=== PATIENT | male | born 1960 | race Caucasian/White ===

== ENCOUNTER 2018-07-30 15:37 | Inpatient (IN) | payer BC ==
[2018-07-30] MEDS ORDERED: SODIUM CHLORIDE 0.9% 1,000 ML IV ONE (17:12)
--- NOTE | 2018-07-30 17:21 | ED ---
Extremity Problem HPI - General Source: patient Mode of arrival: ambulatory Limitations: no limitations <Marie Kevin - Last Filed: 07/30/18 19:18> <Jorge Luis Hernandez - Last Filed: 07/30/18 19:25> - General Chief complaint: Extremity Problem,Nontraumatic Stated complaint: Rash - [facility] Sent Time Seen by Provider: 07/30/18 16:11 - History of Present Illness Initial comments: 58-year-old male past medical history of hypertension and asthma who presents today for chief complaint of left knee pain and rash of the lateral lower extremities that is itchy. Patient states that he was exposed to a standing sweet pea tree which results in a rash similar to that of poison sumac about 2 weeks ago, threes day following exposure pt developed rash. The rash spread from left knee, down left leg onto the right leg and know on forearms b/l. Patient was seen by his primary care provider who started him on a steroid taper Wednesday. Signs and symptoms of secondary infection were discussed at that time, patient noted increasing redness surrounding the areas of the rash. Yesterday he noticed left knee swelling, pain with ambulation and range of motion. The pain persisted into today so he was evaluated at [facility] who sent pt to the emergency department for evaluation of septic arthritis. Upon arrival pt has low grade fever of 99.2F, HR 94bpm. Pt appears well nontoxic. Patient denies any recent fever, chills, shortness of breath, chest pain, back pain, abdominal pain, nausea or vomiting, numbness or tingling, dysuria or hematuria, constipation or diarrhea, headaches or visual changes, or any other complaints. (Marie Kevin) - Related Data Allergies Allergy/AdvReac Type Severity Reaction Status Date / Time No Known Allergies Allergy Verified 07/30/18 15:44 Review of Systems ROS Other: All systems not noted in ROS Statement are negative. Constitutional: Denies: fever, chills, night sweats ENT: Denies: ear pain, throat pain Respiratory: Denies: cough, dyspnea, wheezes, hemoptysis, stridor Cardiovascular: Denies: chest pain, palpitations Gastrointestinal: Denies: abdominal pain, nausea, vomiting, diarrhea, constipation Genitourinary: Denies: urgency, dysuria, frequency Musculoskeletal: Reports: joint swelling, arthralgia. Denies: as per HPI, back pain Skin: Reports: as per HPI, rash, change in color, pruritus Neurological: Denies: headache, weakness, numbness, paresthesias, confusion <HerberthMarie - Last Filed: 07/30/18 19:18> ROS Other: All systems not noted in ROS Statement are negative. <Jorge Luis Hernandez - Last Filed: 07/30/18 19:25> ROS Statement: Those systems with pertinent positive or pertinent negative responses have been documented in the HPI. Past Medical History Past Medical History: Asthma, Hyperlipidemia, Hypertension History of Any Multi-Drug Resistant Organisms: None Reported Past Surgical History: Hernia Repair Additional Past Surgical History / Comment(s): vasectomy Past Psychological History: No Psychological Hx Reported Smoking Status: Former smoker Past Alcohol Use History: None Reported Past Drug Use History: None Reported <Irene Kevinkwasi Patino - Last Filed: 07/30/18 19:18> General Exam Limitations: no limitations <aMrie Kevin - Last Filed: 07/30/18 19:18> <Jorge Luis Hernandez - Last Filed: 07/30/18 19:25> - General Exam Comments Initial Comments: General: The patient is awake and alert, in no distress, and does not appear acutely ill. Eye: Pupils are equal, round and reactive to light, extra-ocular movements are intact. No nystagmus. There is normal conjunctiva bilaterally. No signs of icterus. Ears, nose, mouth and throat: There are moist mucous membranes and no oral lesions. Neck: The neck is supple, there is no tenderness or JVD. Cardiovascular: There is a regular rate and rhythm. No murmur, rub or gallop is appreciated. Respiratory: Lungs are clear to auscultation, respirations are non-labored, breath sounds are equal. No wheezes, stridor, rales, or rhonchi. Musculoskeletal: Upon inspection of the lower extremities there is dermatitis to the left knee medial aspect and medial aspect of right knee in contact pattern dermatitis extends down left lower leg and up towards inner upper thighs all areas of involvement have surrounding erythema. There is same dermatitis on the forearms b/l. Warmth to palpation of affected area. Pt is able to fully range at the knees b/l both active and passively with discomfort with all motions, pt admits to pain with weight bearing in the knee joint, no tenderness. Strength 5/5 of the LE equally b/l. Sensation intact. DP pulses equal bilaterally 2+. (-) Homans, lower extremity edema present equally b/l. Neurological: A&O x 3. CN II-XII intact, There are no obvious motor or sensory deficits. Coordination appears grossly intact. Speech is normal. Skin: Skin is warm and dry and no rashes or lesions are noted. Psychiatric: Cooperative, appropriate mood & affect, normal judgment. (Marie Kevin) Course <Marie Kevin - Last Filed: 07/30/18 19:18> <Jorge Luis Hernandez - Last Filed: 07/30/18 19:25> Vital Signs 07/30/18 07/30/18 15:41 18:18 Temperature 99.4 F 100.6 F H Pulse Rate 94 71 Respiratory 20 18 Rate Blood Pressure 141/59 121/82 O2 Sat by Pulse 99 97 Oximetry - Reevaluation(s) Reevaluation #1: 07/30/18 19:24 Patient reevaluated by myself, Dr. Hernandez. Patient does have diffuse rash with some parts of the left lower leg suspicious for cellulitis. Left knee does feel slightly swollen and warm and tender. Arthrocentesis was attempted without been able to withdrawal any fluid. Care was taken to avoid any area of rash or cellulitis. No complications. Case was discussed in detail with Dr. Diaz who does recommend medical admission and he will consult. Case was also discussed with Dr. Phillips, who will admit. (Jorge Luis Hernandez) Procedures - Joint Aspiration/Injection Consent Obtained: verbal consent Time Out Performed: Yes Indications: R/O septic arthritis Side of Body: left Joint Aspirated: knee Skin Prep: Povidone-Iodine1% Local Anesthesia Used: Lidocaine 1% Needle Size Used: 22G Syringe Size Used: 10cc Patient Tolerated Procedure: well Complications: other (Unable to obtain fluid) <Jorge Luis Hernandez - Last Filed: 07/30/18 19:25> Medical Decision Making - Lab Data Result diagrams: 07/30/18 17:40 07/30/18 17:40 <Marie Kevin - Last Filed: 07/30/18 19:18> - Lab Data Result diagrams: 07/30/18 17:40 07/30/18 17:40 <Hernandez,Jorge Luis - Last Filed: 07/30/18 19:25> - Medical Decision Making 58male with atraumatic left knee pain, erythema and swelling concerning for a septic joint vs cellulitis. Labs as noted above. Pt given 0.9% NS 1000mL. XR left knee obtained reveal no acute fracture dislocation. There is evidence of mild bicarb mental arthropathy and overlying soft tissue swelling subcutaneous edema. Pt developed low grade fever of 100.9F, given 650mg tylenol. Pt evaluated by Dr. Hernandez [id number]. He performed a knee aspiration to r/o septic arthritis, no fluid was obtained from the aspiration. Pt given norco 5mg for post procedure pain. Dr. Diaz was consulted from orthopedic surgery, he stated given XR findings, HX and PE he has low suspicion for septic joint. Pt met sepsis criteria, after attempt of aspiration broad spectrum antibiotics initiated with coverage for possible septic arthritis. Dr. Diaz recommended medicine admit with orthopedic consultation. Dr. Raya consulted who accepted admission after speaking with Dr. Hernandez. Pt was transferred to floor in stable condition. (Marie Kevin) - Lab Data Lab Results 07/30/18 07/30/18 07/30/18 Range/Units 17:40 17:40 17:40 WBC 14.2 H (3.8-10.6) k/uL RBC 5.32 (4.30-5.90) m/uL Hgb 16.1 (13.0-17.5) gm/dL Hct 48.7 (39.0-53.0) % MCV 91.5 (80.0-100.0) fL MCH 30.3 (25.0-35.0) pg MCHC 33.1 (31.0-37.0) g/dL RDW 14.6 (11.5-15.5) % Plt Count 249 (150-450) k/uL Neutrophils % 80 % Lymphocytes % 7 % Monocytes % 5 % Eosinophils % 6 % Basophils % 1 % Neutrophils # 11.4 H (1.3-7.7) k/uL Lymphocytes # 0.9 L (1.0-4.8) k/uL Monocytes # 0.8 (0-1.0) k/uL Eosinophils # 0.9 H (0-0.7) k/uL Basophils # 0.1 (0-0.2) k/uL Sodium 140 (137-145) mmol/L Potassium 3.7 (3.5-5.1) mmol/L Chloride 99 (98-107) mmol/L Carbon Dioxide 29 (22-30) mmol/L Anion Gap 12 mmol/L BUN 20 (9-20) mg/dL Creatinine 1.00 (0.66-1.25) mg/dL Est GFR (CKD-EPI)AfAm >90 (>60 ml/min/1.73 sqM) Est GFR (CKD-EPI)NonAf 82 (>60 ml/min/1.73 sqM) Glucose 109 H (74-99) mg/dL Plasma Lactic Acid Néstor 1.3 (0.7-2.0) mmol/L Calcium 9.7 (8.4-10.2) mg/dL Total Bilirubin 1.0 (0.2-1.3) mg/dL AST 21 (17-59) U/L ALT 35 (21-72) U/L Alkaline Phosphatase 75 (38-126) U/L Total Protein 7.7 (6.3-8.2) g/dL Albumin 4.3 (3.5-5.0) g/dL Disposition Time of Disposition: 19:16 Decision to Admit Reason: Admit from [facility] Decision Date: 07/30/18 Decision Time: 19:16 <Marie Kevin - Last Filed: 07/30/18 19:18> <Jorge Luis Hernandez - Last Filed: 07/30/18 19:25> Clinical Impression: Cellulitis of left lower extremity, Adverse effect of podophyllum resin Disposition: ADMITTED IP TO THIS [facility] Condition: Stable Referrals: Nonstaff,Physician [Primary Care Provider] - 1-2 days
[2018-07-30 17:53] LABS: Basophils # (A) 0.1 k/uL (0-0.2); Basophils % (A) 1 %; Eosinophils # (A) 0.9 k/uL (0-0.7); Eosinophils % (A) 6 %; HCT 48.7 % (39.0-53.0); HGB 16.1 gm/dL (13.0-17.5); Lymphocytes # (A) 0.9 k/uL (1.0-4.8); Lymphocytes % (A) 7 %; MCH 30.3 pg (25.0-35.0); MCHC 33.1 g/dL (31.0-37.0); MCV 91.5 fL (80.0-100.0); Mean Platelet Volume 7.1; Monocytes # (A) 0.8 k/uL (0-1.0); Monocytes % (A) 5 %; Neutrophils # (A) 11.4 k/uL (1.3-7.7); Neutrophils % (A) 80 %; Platelet Count 249 k/uL (150-450); RBC 5.32 m/uL (4.30-5.90); RDW 14.6 % (11.5-15.5); WBC 14.2 k/uL (3.8-10.6)
--- NOTE | 2018-07-30 18:10 | XR ---
EXAMINATION TYPE: XR knee complete LT DATE OF EXAM: 07/30/2018 CLINICAL HISTORY: Left knee pain and swelling for 2 days with no known injury. TECHNIQUE: Three views of the left knee are obtained. COMPARISON: None. FINDINGS: There is no acute fracture/dislocation evident in left knee. The tri-compartment joint sp aces demonstrate small patellofemoral osteophytes and very small medial compartment osteophytes The o verlying soft tissue display subcutaneous edema. IMPRESSION: There is no acute fracture or dislocation in the left knee. Diffuse soft tissue swelling . Mild bicompartmental arthropathy.
[2018-07-30 18:18] LABS: ALT 35 U/L (21-72); AST 21 U/L (17-59); Albumin 4.3 g/dL (3.5-5.0); Alkaline Phosphatase 75 U/L (38-126); Anion Gap 12 mmol/L; Blood Urea Nitrogen 20 mg/dL (9-20); Calcium 9.7 mg/dL (8.4-10.2); Carbon Dioxide 29 mmol/L (22-30); Chloride 99 mmol/L (98-107); Glucose 109 mg/dL (74-99); Potassium 3.7 mmol/L (3.5-5.1); Sodium 140 mmol/L (137-145); Total Protein 7.7 g/dL (6.3-8.2)
[2018-07-30] MEDS ORDERED: ACETAMINOPHEN TAB 325 MG TAB PO STA (18:32)
[2018-07-30] MEDS ORDERED: HYDROcodone/APAP 5-325MG 1 EACH TAB PO STA (19:03)
[2018-07-30] MEDS ORDERED: VANCOMYCIN IV PER PHARMACY 1 EACH MISC MISCELLANE PRN (19:12)
[2018-07-30] MEDS ORDERED: ONDANSETRON 4 MG/2 ML VIAL IVP PRN (19:13)
[2018-07-30] MEDS ORDERED: IBUPROFEN 400 MG TAB PO PRN (19:13)
[2018-07-30] MEDS ORDERED: ACETAMINOPHEN TAB 325 MG TAB PO PRN (19:13)
[2018-07-30] MEDS ORDERED: NALOXONE 0.4 MG/ML 1 ML VIAL IV PRN (19:13)
[2018-07-30 19:59] LABS: Appearance,Urine Clear (Clear); Bilirubin,Urine Negative (Negative); Blood,Urine Negative (Negative); Color,Urine Yellow; Glucose,Urine (UA) Negative (Negative); Ketones,Urine Negative (Negative); Leukocyte Esterase,Urine Negative (Negative); Nitrite,Urine Negative (Negative); Protein,Urine Negative (Negative); Specific Gravity,Urine 1.012 (1.001-1.035); Urobilinogen,Urine <2.0 mg/dL (<2.0)
[2018-07-30] MEDS ORDERED: VANCOMYCIN 2,250 MG in SODIUM CHLORIDE 0.9% 500 ML 500 ML IVPB ONE (20:00)
[2018-07-30] MEDS: cefTRIAXone 2,000 MG in SODIUM CHLORIDE 0.9% 100 ML IVPB SCH (20:05)
[2018-07-30] MEDS: SODIUM CHLORIDE 0.9% 1,000 ML IV SCH (20:06)
[2018-07-30] MEDS ORDERED: diphenhydrAMINE 25 MG CAP PO PRN (20:57)
--- NOTE | 2018-07-30 21:01 | P.HPIM ---
History of Present Illness H&P Date: 07/30/18 Chief Complaint: Diffuse rash, left knee pain, fever The patient is a 58-year-old male with past medical history of hypertension and asthma who presents today for chief complaint of left knee pain and rash of the lateral lower extremities. Patient states that he was exposed to a standing sweet pea tree which results in a rash similar to that of poison sumac about 2 weeks ago, threes day following exposure pt developed rash. The rash spread from left knee, down left leg onto the right leg and know on forearms b/l. Patient was seen by his primary care provider who started him on a steroid taper Wednesday. Signs and symptoms of secondary infection were discussed at that time, patient noted increasing redness surrounding the areas of the rash. Reports redness Yesterday he noticed left knee swelling, pain on the inner medial side by his patella with limited range of motion and increasing difficulty ambulating. Patient noticed left knee was warm to touch with increasing erythema in the left popliteal area. The pain persisted into today so he was evaluated at [email or web address] who sent pt to the emergency department for evaluation of septic arthritis. Upon arrival pt has low grade fever of 99.2F, HR 94bpm. Pt appears well nontoxic. Patient denies any recent fever, chills, shortness of breath, chest pain, back pain, abdominal pain, nausea or vomiting, numbness or tingling, dysuria or hematuria, constipation or diarrhea, headaches or visual changes, or any other complaints. X-ray of the left knee shows no acute fracture diffuse soft tissue swelling, with mild bicompartmental arthropathy Review of Systems Pertinent positives per HPI, all other systems are negative Past Medical History Past Medical History: Asthma, Hyperlipidemia, Hypertension History of Any Multi-Drug Resistant Organisms: None Reported Past Surgical History: Hernia Repair Additional Past Surgical History / Comment(s): vasectomy Past Psychological History: No Psychological Hx Reported Smoking Status: Former smoker Past Alcohol Use History: None Reported Past Drug Use History: None Reported Medications and Allergies Allergies Allergy/AdvReac Type Severity Reaction Status Date / Time No Known Allergies Allergy Verified 07/30/18 15:44 Physical Exam Vitals: Vital Signs Temp Pulse Resp BP Pulse Ox 07/30/18 19:57 98.4 F 64 18 113/64 95 07/30/18 19:32 98.1 F 10/06/18 18:18 100.6 F H 71 18 121/82 97 07/30/18 15:41 99.4 F 94 20 141/59 99 Intake and Output 07/30/18 07/30/18 07/30/18 06:59 14:59 22:59 Other: Weight 110.223 kg Constitutional: No acute distress, conversant, pleasant Eyes: Anicteric sclerae, moist conjunctiva, no lid-lag, PERRLA ENMT: NC/AT,Oropharynx clear, no erythema, exudates Neck:Supple, FROM, no masses, or JVD, No carotid bruits; No thyromegaly Lungs: Clear to auscultation, Clear to percussion, Normal respiratory effort, no accessory muscle use Cardiovascular: Heart regular in rate and rhythm, No murmurs, gallops, or rubs no peripheral edema Abdominal: Soft Nontender, nom distended, no guarding, no rebound or rigidity, Normoactive bowel sounds No hepatomegaly, No splenomegaly, No palpable mass No abdominal wall hernia noted Skin: Warm to touch, blisters in advanced stage of healing, contact dermatitis pattern extending down the left lower leg up towards inner thigh areas with other areas of surrounding erythema, also similarly located in the bilateral upper extremities Extremities: Noted left knee effusion, tender to palpation on the left medial patellar area, with erythematous warm to touch rash in the popliteal area, limited range of motion in the left knee due to pain/ patient also complained and off difficulty bearing weight and pain with ambulation, capillary refill brisk bilaterally Psychiatric: Alert and oriented to person, place and time, Appropriate affect Intact judgement Neuro: Muscles Strength 5/5 in all 4 extremities, Sensation to light touch grossly present throughout, Cranial nerves II-XII grossly intact. No focal sensory deficits Results CBC & Chem 7: 07/30/18 17:40 07/30/18 17:40 Labs: Abnormal Lab Results - Last 24 Hours (Table) 07/30/18 07/30/18 Range/Units 17:40 17:40 WBC 14.2 H (3.8-10.6) k/uL Neutrophils # 11.4 H (1.3-7.7) k/uL Lymphocytes # 0.9 L (1.0-4.8) k/uL Eosinophils # 0.9 H (0-0.7) k/uL Glucose 109 H (74-99) mg/dL Assessment and Plan (1) Sepsis Current Visit: Yes Status: Acute Code(s): A41.9 - SEPSIS, UNSPECIFIED ORGANISM SNOMED Code(s): 36493480 (2) Effusion, left knee Current Visit: Yes Status: Acute Code(s): M25.462 - EFFUSION, LEFT KNEE SNOMED Code(s): 178477250 (3) Cellulitis of left lower extremity Current Visit: Yes Status: Acute Code(s): L03.116 - CELLULITIS OF LEFT LOWER LIMB SNOMED Code(s): 164857636 (4) Contact dermatitis Current Visit: Yes Status: Acute Code(s): L25.9 - UNSPECIFIED CONTACT DERMATITIS, UNSPECIFIED CAUSE SNOMED Code(s): 36500999 Plan: The patient is admitted to the medical floor anticipated greater than 2 midnight stay with sepsis secondary to lower extremity cellulitis from secondary infection due to prior contact dermatitis, noted fever, with leukocytosis, blood cultures pending, will obtain urine culture. Concern for left knee septic joint, ER physician unable to aspirate any synovial fluid for analysis. Orthopedic consult, started on empiric IV antibiotics with Rocephin and vancomycin, continue with supportive management Benadryl calamine lotion when necessary contact dermatitis. Patient initiated on Lovenox for DVT prophylaxis. We'll continue to follow patient's clinical course CODE STATUS Full code Discussed plan of care with patient/ Next of kin Jonna DVT prophylaxis : SCDs and Lovenox Anticipated discharge 2-3 days
[2018-07-31] MEDS: HYDROcodone/APAP 5-325MG 1 EACH TAB PO PRN ×3 (05:56→21:05)
[2018-07-31] MEDS: VANCOMYCIN 1,750 MG in SODIUM CHLORIDE 0.9% 500 ML 500 ML IVPB SCH ×2 (10:30→21:06)
[2018-07-31] MEDS: ENOXAPARIN 40 MG/0.4 ML SYRINGE SQ SCH (10:33)
--- NOTE | 2018-07-31 10:58 | P.CNOR ---
History of Present Illness - [facility] Consult date: 07/31/18 Requesting physician: Marie Kevin Consult reason: other (Left knee pain and rash with swelling; rule out septic joint) History of present illness: Patient is a very pleasant 58-year-old male who is seen examined at bedside with Dr. Diaz. Patient states approximately 2 weeks ago he was standing next to a sweet pea tree which is known to cause a rash similar to that of poison sumac. Since that time, he has began to experience significant rash. nitially the rash was at the left knee. The rash extended down the left lower extremity and also towards the left medial ankle. And then spread over to the right medial knee and right medial ankle. It has also extended to the upper extremities. He saw primary care provider this past Wednesday for further treatment evaluation. He was started on a steroid. His symptoms persisted and yesterday, 07/30/2018, he noticed increased left knee pain and swelling with difficulty with ambulation. He presented to [facility] for further treatment and evaluation. He was then sent to the emergency department for further treatment evaluation. He was admitted to medicine. He has been started on vancomycin and Rocephin. Patient has also been discussed with medicine today. Patient was found to have elevated WBC of 14.2 and elevated neutrophils 11.4 during his evaluation the emergency department. Patient has a past medical history which includes hypertension and asthma. Past Medical History Past Medical History: Asthma, Hyperlipidemia, Hypertension Additional Past Medical History / Comment(s): CPAP at night History of Any Multi-Drug Resistant Organisms: None Reported Past Surgical History: Hernia Repair Additional Past Surgical History / Comment(s): vasectomy, tiera facial spasm repaired in 1999 Past Anesthesia/Blood Transfusion Reactions: No Reported Reaction Past Psychological History: No Psychological Hx Reported Smoking Status: Former smoker Past Alcohol Use History: None Reported Past Drug Use History: None Reported - Past Family History Mother Family Medical History: Hypertension Additional Family Medical History / Comment(s): Mom is still alive Father Family Medical History: Diabetes Mellitus, Hypertension, Myocardial Infarction ( [place]) Additional Family Medical History / Comment(s): "Had 7 stents in heart" from heart attack he thinks Medications and Allergies Home Medications Medication Instructions Recorded Confirmed Type Pantoprazole [Protonix] BID 07/30/18 History Simvastatin [Zocor] HS 07/30/18 History Allergies Allergy/AdvReac Type Severity Reaction Status Date / Time No Known Allergies Allergy Verified 07/30/18 22:00 Physical Examination Physical Exam: Patient is awake, alert, and oriented 3 Vital signs stable Good chest excursion with deep inspiration and expiration Abdomen soft nontender No signs or symptoms of DVT; no calf pain Evidence of contact dermatitis rash that is red and warm with some crusting over the left medial knee, left proximal tibia, left medial ankle, right medial knee, right medial ankle, and mildly over the bilateral upper extremities Evidence of generalized prepatellar swelling over the left knee Palpation of the left knee is warm and exacerbates pain No evidence of joint effusion Active full range of motion of bilateral lower extremities Some increased pain with range of motion of the left knee No active drainage or open wound at the left knee Results Pertinent studies: X-rays the left knee: Evidence of soft tissue swelling; no evidence of fracture or dislocation; mild compartmental arthropathy - Labs Labs: Abnormal Lab Results - Last 24 Hours (Table) 07/30/18 07/30/18 Range/Units 17:40 17:40 WBC 14.2 H (3.8-10.6) k/uL Neutrophils # 11.4 H (1.3-7.7) k/uL Lymphocytes # 0.9 L (1.0-4.8) k/uL Eosinophils # 0.9 H (0-0.7) k/uL Glucose 109 H (74-99) mg/dL H & H 07/30/18 Range/Units 17:40 Hgb 16.1 (13.0-17.5) gm/dL Hct 48.7 (39.0-53.0) % Result Diagrams: 07/30/18 17:40 07/30/18 17:40 Assessment and Plan Assessment: Assessment: Left prepatellar swelling not appearing to be within the joint Pain with movement palpation of the left knee Evidence of rash over the left medial knees bilaterally, left ankles bilaterally , left proximal tibia, and mildly over the bilateral upper extremities Leukocytosis History of hypertension History of asthma (1) Pain and swelling of left knee Current Visit: Yes Status: Acute Code(s): M25.562 - PAIN IN LEFT KNEE; M25.462 - EFFUSION, LEFT KNEE SNOMED Code(s): 05183864 (2) Leukocytosis Current Visit: Yes Status: Acute Code(s): D72.829 - ELEVATED WHITE BLOOD CELL COUNT, UNSPECIFIED SNOMED Code(s): 595754309 (3) Hypertension Current Visit: Yes Status: Acute Code(s): I10 - ESSENTIAL (PRIMARY) HYPERTENSION SNOMED Code(s): 94718109 (4) History of asthma Current Visit: Yes Status: Acute Code(s): Z87.09 - PERSONAL HISTORY OF OTHER DISEASES OF THE RESPIRATORY SYSTEM SNOMED Code(s): 429007287 (5) Contact dermatitis Current Visit: Yes Status: Acute Code(s): L25.9 - UNSPECIFIED CONTACT DERMATITIS, UNSPECIFIED CAUSE SNOMED Code(s): 67308084 Plan: Plan: 1. Patient has been seen and examined at the bedside by myself and Dr. Solomon Diaz. After physical examination, we are not currently planning for irrigation and debridement or drainage of the left knee. Patient does have evidence of swelling over the prepatellar area that doesn't appear to be within the left knee joint. We will continue conservative treatment with antibiotics as prescribed by medicine. Patient is currently on vancomycin and Rocephin. We will continue to follow patient closely. If he is able to improve on IV antibiotics, he may be clear for discharge as early as tomorrow, 08/01/2018. Patient has been discussed in detail with medicine. Continue pain control with medications as prescribed as needed for relief of his symptoms. 2. Patient will continue to be seen by medicine in regards his medical diagnoses Time with Patient: Less than 30
[2018-07-31] MEDS: cefTRIAXone 2,000 MG in SODIUM CHLORIDE 0.9% 100 ML IVPB SCH (13:50)
[2018-07-31] MEDS ORDERED: ALBUTEROL NEBULIZED 2.5 MG/3 ML INHALATION PRN (15:42)
--- NOTE | 2018-07-31 15:45 | P.PN ---
Subjective Progress Note Date: 07/31/18 Patient is a 58-year-old male with a PMH of hypertension and asthma who presented to the ED with a complaint of left knee and leg painful rash and swelling. The patient notes that 2 weeks ago he cut down a sweet pea [place] came in contact with his legs. He thoroughly washed the area after the contacts however, one week later he started noticing a rash over the left leg. He went to see his primary care provider who placed him on a steroid taper at that time. Yesterday he noted that his left knee had started to hurt and the rash had not resolved so he visited a local urgent care center from where he was referred to the ED for concerns of septic arthritis. The patient was noted to have a low-grade fever of 99.2 with a normal heart rate and a WBC count of 14.2. The arthrocentesis was attempted but was unsuccessful and the patient was admitted to the medicine service for further management. He was started on empiric IV antibiotics and orthopedic surgery was consulted. Orthopedics recommended a conservative approach since the patient did not have evidence of effusion within the knee joint with swelling only over the prepatellar area. The recommended to continue IV antibiotics for now. Patient was seen and examined at the bedside. He notes that his rash has improved since admission and he otherwise denied any episodes of fever, chills, chest pain, shortness of breath, or palpitations. He further denies any episodes of diarrhea, nausea, vomiting, or constipation. Objective - Vital Signs Vital signs: Vital Signs Temp 99.7 F H 07/31/18 14:20 Pulse 72 07/31/18 14:20 Resp 19 07/31/18 14:20 BP 124/79 07/31/18 14:20 Pulse Ox 94 L 07/31/18 14:20 Intake & Output 07/30/18 07/31/18 07/31/18 18:59 06:59 18:59 Intake Total 1240 200 Balance 1240 200 Weight 110.223 kg Intake: Intake, IV Titration 740 Amount Sodium Chloride 0.9% 1, 240 000 ml @ 20 mls/hr IV . Q24H [facility] Rx#:[id number] Vancomycin 2,250 mg In 500 Sodium Chloride 0.9% 500 ml @ 167 mls/hr IVPB ONCE ONE Rx#:[id number] Oral 500 200 Other: Voiding Method Toilet # Voids 1 - Exam General: Non-toxic, in no acute distress HEENT: NC/AT, anicteric sclerae, moist conjunctiva, no lid-lag, PERRLA, oropharynx clear, no erythema, exudates Cardiovascular: S1/S2 wnl, no murmurs, rubs, or gallops Lungs: Clear to auscultation, normal respiratory effort, no accessory muscle use Abdominal: Soft, nontender, non-distended, no guarding, rebound, or rigidity, normoactive bowel sounds Skin: Rash noted over the medial aspect of bilateral knees with warmth and erythema and some scaling and crusting Extremities: Left knee mild tenderness Psychiatric: Alert and oriented to person, place and time, appropriate affect, Intact judgment Neuro: CN II-XII grossly intact, no focal motor deficits - Labs CBC & Chem 7: 07/30/18 17:40 07/30/18 17:40 Labs: Abnormal Lab Results - Last 24 Hours (Table) 07/30/18 07/30/18 Range/Units 17:40 17:40 WBC 14.2 H (3.8-10.6) k/uL Neutrophils # 11.4 H (1.3-7.7) k/uL Lymphocytes # 0.9 L (1.0-4.8) k/uL Eosinophils # 0.9 H (0-0.7) k/uL Glucose 109 H (74-99) mg/dL Assessment and Plan Plan: Contact dermatitis with superimposed cellulitis -Orthopedic surgery recommendations appreciated -Continue with empiric IV antibiotics ceftriaxone and vancomycin for another 24 hours -Continue with emollients Hypertension -Resume home meds: Lisinopril 20, hydrochlorothiazide 25 Hyperlipidemia -Continue with Zocor 20 Asthma -Continue with Advair twice a day and albuterol when necessary DVT//GI prophylaxis - Lovenox - No indication for GI prophylaxis Discussed with: Patient Anticipated discharge date: 08/01/[address]: Home A total of 40 minutes was spent on the care of this complex patient more than 50 % of the time was spent in counseling and care coordination.
[2018-07-31] MEDS ORDERED: VANCOMYCIN IV PER PHARMACY 1 EACH MISC MISCELLANE PRN (16:55)
[2018-07-31] MEDS: FLUTICASONE 50MCG/SPRAY NASAL 16GM EA NOSTRIL SCH (18:15)
[2018-07-31] MEDS: PANTOPRAZOLE 40 MG TABLET PO SCH (18:15)
[2018-07-31 19:18] VITALS: RESP 16
[2018-07-31] MEDS: CALAMINE/ZINC OXIDE LOTION 177 ML BTL TOPICAL PRN (19:20)
[2018-07-31] MEDS: SYMBICORT 160-4.5 MCG INHALER INHALATION SCH (19:22)
[2018-07-31] MEDS ORDERED: ATORVASTATIN 10 MG TAB PO SCH (21:00)
[2018-07-31] MEDS: SODIUM CHLORIDE 0.9% 1,000 ML IV SCH (21:10)
[2018-08-01] MEDS: CALAMINE/ZINC OXIDE LOTION 177 ML BTL TOPICAL PRN (05:35)
[2018-08-01 07:12] VITALS: BP 134/82; PULSE 74
[2018-08-01] MEDS: VANCOMYCIN 1,750 MG in SODIUM CHLORIDE 0.9% 500 ML 500 ML IVPB SCH (07:46)
[2018-08-01] MEDS: PANTOPRAZOLE 40 MG TABLET PO SCH (07:46)
[2018-08-01] MEDS: FLUTICASONE 50MCG/SPRAY NASAL 16GM EA NOSTRIL SCH (07:46)
[2018-08-01] MEDS: ENOXAPARIN 40 MG/0.4 ML SYRINGE SQ SCH (08:21)
[2018-08-01] MEDS: SYMBICORT 160-4.5 MCG INHALER INHALATION SCH (08:49)
[2018-08-01 08:57] LABS: MCH 30.6 pg (25.0-35.0); MCHC 34.1 g/dL (31.0-37.0); MCV 89.7 fL (80.0-100.0); Platelet Count 227 k/uL (150-450); RBC 4.57 m/uL (4.30-5.90); RDW 14.9 % (11.5-15.5); WBC 11.3 k/uL (3.8-10.6)
[2018-08-01] MEDS ORDERED: LISINOPRIL-HCTZ 20-25 MG 1 EACH TAB PO SCH (09:00)
[2018-08-01 09:09] LABS: Anion Gap 8 mmol/L; Blood Urea Nitrogen 16 mg/dL (9-20); Calcium 8.4 mg/dL (8.4-10.2); Carbon Dioxide 27 mmol/L (22-30); Chloride 105 mmol/L (98-107); Glucose 85 mg/dL (74-99); Sodium 140 mmol/L (137-145)
[2018-08-01 10:20] VITALS: TEMP 98.1
--- NOTE | 2018-08-01 11:28 | P.DS ---
Providers Date of admission: 07/30/18 19:25 Expected date of discharge: 08/01/18 Attending physician: Bette Raya MD Consults: 07/30/18 19:13 Consult Physician Stat Consulting Provider: Godfrey Feng Consult Reason/Comments: r/o septic joint Do you want consulting provider notified?: Already Contacted Primary care physician: Physician Nonstaff Hospital Course: Patient is a 58-year-old male with a PMH of hypertension and asthma who presented to the ED with a complaint of left knee and leg painful rash and swelling. The patient notes that 2 weeks ago he cut down a sweet pea tree on his property, the bark of which came in contact with his legs. He thoroughly washed the area after the contacts however, one week later he started noticing a rash over the affected areas. He went to see his primary care provider who placed him on a steroid taper at that time. Day prior to presentation he noted that his left knee had started to hurt and the rash had not resolved so he visited a local urgent care center from where he was referred to the ED for concerns of septic arthritis. The patient was noted to have a low-grade fever of 99.2 with a normal heart rate and a WBC count of 14.2. The arthrocentesis was attempted but was unsuccessful and the patient was admitted to the medicine service for further management. He was started on empiric IV antibiotics and orthopedic surgery was consulted. Orthopedics recommended a conservative approach since the patient did not have evidence of effusion within the knee joint with swelling only over the prepatellar area. The patient's symptoms gradually improved w/ IV abxs. He is presently stable and ready for discharge to home. Physical Examination General: Non-toxic, in no acute distress HEENT: NC/AT, anicteric sclerae, moist conjunctiva, no lid-lag, PERRLA, oropharynx clear, no erythema, exudates Cardiovascular: S1/S2 wnl, no murmurs, rubs, or gallops Lungs: Clear to auscultation, normal respiratory effort, no accessory muscle use Abdominal: Soft, nontender, non-distended, no guarding, rebound, or rigidity, normoactive bowel sounds Skin: Rash noted over the medial aspect of bilateral knees with warmth and erythema and some scaling and crusting, significantly improved, w/ erythema receding from pen markings yesterday Extremities: Left knee mild tenderness Psychiatric: Alert and oriented to person, place and time, appropriate affect, Intact judgment Neuro: CN II-XII grossly intact, no focal motor deficits Discharge diagnosis: Bilateral lower extremity contact dermatitis and superimposed cellulitis, leukocytosis, hypertension, hyperlipidemia, asthma A total of 60 minutes of time were spent preparing this complex discharge summary. Patient Condition at Discharge: Stable Plan - Discharge Summary Discharge Rx Participant: No New Discharge Prescriptions: New Clindamycin [Cleocin] 450 mg PO Q6H #20 capsule Continue Simvastatin [Zocor] 20 mg PO HS Pantoprazole [Protonix] 40 mg PO BID Fluticasone/Salmeterol [Advair 500-50 Diskus] 1 puff INHALATION RT-BID Fluticasone Nasal Weston [Flonase Nasal Weston] 1 spray EA NOSTRIL DAILY Albuterol Inhaler [Ventolin Hfa Inhaler] 2 puff INHALATION RT-Q6H PRN PRN Reason: Shortness Of Breath Lisinopril-Hctz 20-25 mg [Zestoretic 20-25] 1 tab PO DAILY Discharge Medication List Pantoprazole [Protonix] 40 mg PO BID 07/30/18 [History] Simvastatin [Zocor] 20 mg PO HS 07/30/18 [History] Albuterol Inhaler [Ventolin Hfa Inhaler] 2 puff INHALATION RT-Q6H PRN 07/31/18 [ History] Fluticasone Nasal Weston [Flonase Nasal Weston] 1 spray EA NOSTRIL DAILY 07/31/18 [History] Fluticasone/Salmeterol [Advair 500-50 Diskus] 1 puff INHALATION RT-BID 07/31/18 [History] Lisinopril-Hctz 20-25 mg [Zestoretic 20-25] 1 tab PO DAILY 07/31/18 [History] Clindamycin [Cleocin] 450 mg PO Q6H #20 capsule 08/01/18 [Rx] Follow up Appointment(s)/Referral(s): Nonstaff,Physician [Primary Care Provider] - 1-2 days Discharge Disposition: HOME SELF-CARE
[2018-08-01] MEDS ORDERED: cefTRIAXone 2,000 MG in SODIUM CHLORIDE 0.9% 100 ML IVPB SCH (12:00)
[2018-08-01] MEDS ORDERED: VANCOMYCIN 2,000 MG in SODIUM CHLORIDE 0.9% 500 ML 500 ML IVPB SCH (20:00)
--- NOTE | 2018-08-02 08:13 | CDI ---
Last Revision, September 2017 Documentation Clarification Form Date: 08/02/2018 7:44:26 AM From: Lindsey Daviss Phone: If you have a question about this query, please contact [employer] at [phone] between 8am and 5pm. Admit Date: 07/30/2018 7:25:00 PM Patient Name: Dallas May Visit Number: [id number] Discharge Date: 08/01/18 ATTENTION: The Clinical Documentation Specialists (CDI) and [facility] Coding Staff appreciate your assistance in clarifying documentation. Please respond to the clarification below the line at the bottom and electronically sign. The CDI & [facility] Coding staff will review the response and follow-up if needed. Please note: Queries are made part of the Legal Health Record. If you have any questions, please contact the author of this message via ITS. Bette Canales MD H & P documents sepsis. But Sepsis diagnosis not carried through chart. Please clarify if patient had sepsis or was it ruled out. History/Risk Factors: contact dermatitis from contact with bark of pea tree. Clinical Indicators: rash, effusion knee, cellulitis let leg WBC/Left Shift 14.2 Lactic acid: 1.3 Vitals signs on admission: 99.4-100.6 F, 94-71, 20-18, 141/59 121/82, 99 RA 97 RA on day of admit Other Clinical Indicators: fever, elevated WBC's, warm to touch Treatment: Attempted arthrocentesis Ortho consult: to rule out septic joint Antibiotics: Rocephin and Vancomycin In your professional opinion, please clarify if these findings signify one of the following conditions Sepsis ruled out Sepsis due to __Septic arthritis__ Other, please specify Unable to determine MTDD
== END 2018-08-01 11:52 | disposition home or self-care (01) | DRG 872 ==
LOC: EC 15:37 → 3SUR 19:25
PROVIDERS: ADMIT Internal Medicine; ATTEND Internal Medicine
DX: A41.9 Sepsis, unspecified organism (principal); M00.9 Pyogenic arthritis, unspecified; L03.116 Cellulitis of left lower limb; E78.5 Hyperlipidemia, unspecified; I10 Essential (primary) hypertension; J45.909 Unspecified asthma, uncomplicated; M25.462 Effusion, left knee; Z82.49 Family history of ischemic heart disease and other diseases of the circulatory system; Z83.3 Family history of diabetes mellitus; Z87.891 Personal history of nicotine dependence; Z79.899 Other long term (current) drug therapy; L23.7 Allergic contact dermatitis due to plants, except food
CPT/HCPCS: 36415; 80048; 80053; 80202; 81003; 83605; 85025; 85027; 87040; 94640; 96365; 99284

== ENCOUNTER → 2022-07-02 | Outpatient (CLI) | payer OTHER ==
[2022-07-02 11:51] LABS: INR 0.9 (<1.2); Partial Thromboplastin Time 25.5 sec (22.0-30.0); Prothrombin Time 10.1 sec (9.0-12.0)
[2022-07-02 15:03] LABS: African American GFR (CKD) 95.5 (60.0-200.0); Albumin 4.2 g/dL (3.8-4.9); Albumin/Globulin Ratio 1.28 (1.60-3.17); Anion Gap 10.2 mmol/L (10.00-18.00); BUN/Creat Ratio 17.05 Ratio (12.00-20.00); Blood Urea Nitrogen 16.5 mg/dL (9.0-27.0); Calcium 9.6 mg/dL (8.7-10.3); Carbon Dioxide 28.2 mmol/L (20.0-27.5); Globulin 3.3 g/dL (1.6-3.3); Non-African American GFR(CKD) 82.4 (60.0-200.0); Total Bilirubin 0.5 mg/dL (0.30-1.20); Total Protein 7.5 g/dL (6.2-8.2)
[2022-07-02 16:00] LABS: HCT 45.3 % (39.6-50.0); HGB 15.3 g/dL (13.0-17.0); MCH 31.4 pg (27.0-32.0); MCHC 33.8 g/dL (32.0-37.0); Mean Platelet Volume 10.8 fL (9.5-12.2); NRBC Per 100 WBC 0 /100 WBCS (0.0-0.0); Platelet Count 166 X 10*3/uL (140-440); RBC 4.87 X 10*6/uL (4.40-5.60); RBC Morphology NORMAL; RDW 13.4 % (11.5-14.5); WBC 5.23 X 10*3/uL (4.50-10.00)
== END | disposition home or self-care (01) ==
LOC: LABPAT 09:08
PROVIDERS: ATTEND Orthopaedic Surgery
DX: Z01.812 Encounter for preprocedural laboratory examination (principal); Z01.818 Encounter for other preprocedural examination; M16.12 Unilateral primary osteoarthritis, left hip
CPT/HCPCS: 80053; 85027; 85610; 85730; 87070

== ENCOUNTER 2022-07-08 10:44 | Day surgery (SDC) | payer BC, OTHER ==
[2022-07-06 14:41] VITALS: BMI 34.2
[~2022-07-08 10:44] MED LIST: ACETAMINOPHEN TAB 500 MG TAB PO PRN; DEXAMETHASONE SOD PHOSPHATE 10 MG/ML 1 ML VIAL IV PRN; DOCUSATE 100 MG CAP PO PRN; FAMOTIDINE 20 MG/2 ML VIAL IVP PRN; KETOROLAC 15 MG/ML 1 ML VIAL IVP PRN; LACTATED RINGERS 1,000 ML IV SCH; LIDOCAINE 1% (10MG/ML) FOR IV START INTRADERMA PRN; ONDANSETRON 4 MG/2 ML VIAL IVP PRN; ROPIVACAINE/EPI/CLONIDINE/KET 50 ML SYRINGE MISCELLANE PRN; TRANEXAMIC ACID IN NACL,ISO-OS 1,000 MG in SALINE 1 100ML.BAG IVPB PRN; oxyCODONE ER 10 MG TAB.ER.12H PO PRN
[2022-07-08] MEDS ORDERED: MIDAZOLAM 2 MG/2 ML VIAL IVP ONE (12:25)
--- NOTE | 2022-07-08 13:00 | P.ANPRN ---
Procedure Note - Anesthesia - Nerve Block Performed Left Erector Spinae Single Time Out Performed: Yes Date of Procedure: 07/08/22 Procedure Start Time: 12:25 Procedure Stop Time: 12:37 Location of Patient: PreOp Indication: Acute Post-Operative Pain, Requested by Surgeon Sedation Type: Sedate with meaningful contact maintained Preparation: Sterile Prep, Sterile Dressing Position: Prone Catheter: None Needle Types: Pajunk Needle Gauge: 20 Ultrasound used to visualize needle placement: Yes Ultrasound used to observe medication spread: Yes Injectate: 0.5% Ropivacaine (see comment for volume) (30 ml + decadron 4 mg) Blood Aspirated: No Pain Paresthesia on Injection Noted: No Resistance on Injection: Normal Image Stored and Saved: Yes Events: Uneventful and Well Tolerated
[2022-07-08] MEDS ORDERED: SUCCINYLCHOLINE CHLORIDE 200 MG/10 ML VIAL IV ONE (13:41)
[2022-07-08] MEDS ORDERED: NEOSTIGMINE 1 MG/ML 10 ML VIAL ONE (13:41)
[2022-07-08] MEDS ORDERED: PROPOFOL 10 MG/ML 20 ML VIAL IV ONE (13:41)
[2022-07-08] MEDS ORDERED: DEXAMETHASONE SOD PHOSPHATE 4 MG/ML 1 ML VIAL ONE (13:41)
[2022-07-08] MEDS ORDERED: fentaNYL (PF) 50 MCG/ML 2 ML AMP ONE (13:41)
[2022-07-08] MEDS ORDERED: LIDOCAINE 2% INJ 20 MG/ML (2 ML VIAL) ONE (13:41)
[2022-07-08] MEDS ORDERED: PHENYLEPHRINE-0.9% NACL SYG 1,000 MCG/10 ML SYRINGE ONE (13:41)
[2022-07-08] MEDS ORDERED: ROPIVACAINE 5 MG/ML 30 ML VIAL ONE (13:41)
[2022-07-08] MEDS ORDERED: HYDROmorphone (PF) 1 MG/ML ONE (13:41)
[2022-07-08] MEDS ORDERED: ROCURONIUM 10 MG/ML (5 ML VIAL) IV ONE (13:41)
[2022-07-08] MEDS ORDERED: TRANEXAMIC ACID IN NACL,ISO-OS 1,000 MG/100 ML BAG ONE (13:41)
[2022-07-08] MEDS ORDERED: GLYCOPYRROLATE 0.2 MG/ML 2 ML VIAL ONE (13:41)
[2022-07-08] MEDS ORDERED: LACTATED RINGERS 1,000 ML IV ONE (15:00)
--- NOTE | 2022-07-08 15:46 | P.OP ---
Date of Procedure: 07/08/22 Preoperative Diagnosis: Severe left hip osteoarthritis Postoperative Diagnosis: Same Procedure(s) Performed: Left direct anterior total hip arthroplasty Implants: 1. Jennifer Trident II Acetabular Cup, Size #56 2. Jennifer Insignia Size # 6 Femoral Stem, Standard Offset 3. Biolox delta femoral head, 40mm, -2.5 neck Anesthesia: SUSANAA Surgeon: Darwin Baron Architectural Designer #1: Taj Lopez Estimated Blood Loss (ml): 300 IV fluids (ml): 1,000 Pathology: none sent Condition: stable Disposition: PACU Indications for Procedure: I had a long discussion with the patient in the office on the potential risks and complications of an elective total hip replacement through a direct anterior approach. Risks discussed include, but are certainly not limited to, risks from anesthesia, superficial infection requiring local wound care or antibiotics, deep ayanna-prosthetic joint infection and the treatment required to eradicate infection, intraoperative fracture, postoperative periprosthetic fracture, damage to local blood vessels or nerves particularly the lateral femoral cutaneous nerve, delayed wound healing requiring local wound care or possibly surgical debridement, hip dislocation, leg length discrepancy, soft tissue irritation around the total hip implant such as iliopsoas tendinitis or trochanteric bursitis, wear and osteolysis from the implants, squeaking or audible noises, groin pain, thigh pain, heterotopic ossification, stiffness, aseptic loosening of the implants, dissatisfaction with surgical outcome, need for revision surgery, DVT, PE, swelling of the operative extremity, acute cor onary event, stroke, failure to thrive, and possibly loss of life or limb. The patient understands that while these are the most common complications after an elective hip replacement there are certainly other less common complications possible. They were given ample time to ask questions regarding the potential complications of a hip replacement. Following our discussion the patient provided their verbal and written consent to go forward with an elective total hip replacement. Operative Findings: Severe osteoarthritis Description of Procedure: The patient was identified in the preoperative holding area and the correct hip was marked with my initials. I reviewed the procedure and consent with the patient. All of their questions were answered. The patient was then brought back into the operating room by anesthesia. While on the [facility] anesthesia was administered by the anesthesia team. Preoperative antibiotics and tranexamic ac id were also given. After the patient was under anesthesia I examined their ankles to determine their preoperative leg length discrepancy. The skin over the anterior aspect of the hip was shaved to remove hair over the site of planned incision. Both feet and ankles were padded with webril and boots for the Stout were applied. The patient was then carefully transferred onto the Stout table. A perineal post was immediately placed. The arms were placed on arm holders and were well-padded. Both boots were secured to the spars on the Stout table. The patient was positioned so that the pelvis was centered over the post. Nonsterile drapes were applied. A timeout was performed identifying the correct patient, operative extremity, and procedure. At this point fluoroscopy was brought in to take preoperative images of the pelvis and operative hip. Using the standing AP pelvis from the office as a template, a comparable image was obtained with fluoroscopy. A metallic bar was used to create a bi-ischial line for use as a reference to leg length adjustments during the procedure. Global offset was also measured on both the operative and nonoperative leg. Fluoroscopy was then brought out and a pre-scrub using a chlorhexidine scrub brush was performed. The operative limb was then prepped and draped in the standard sterile fashion. An anterior longitudinal incision was made lateral and distal to the ASIS. The skin and subcutaneous tissues were incised sharply. The underlying tensor fascia was identified and incised in its midportion. The fascia was dissected free from the underlying muscle and the muscle belly was retracted. A blunt tipped cobra retractor was placed over the superior neck under the muscle fibers of the gluteus minimus. The deep enveloping fascia of the tensor was incised. The anterior leash of vessels were then identified and cauterized. The fascia between the rectus and the capsule was then incised and the pre-capsular fat was excised. A second Cobra was placed inferior to the neck. The interval between the rectus and iliocapsularis and the hip capsule was developed and a retractor was placed carefully over the anterior rim of the acetabulum. A T-shaped anterior capsulotomy was performed. The superior capsular leaflet was left in place in the inferior capsular flap was excised. The Cobra retractors were placed intracapsularly. We then made a femoral neck osteotomy according to preoperative and intraoperative templating and confirmed the level of the osteotomy using fluoroscopic imaging. The femoral head was removed, passed off to the back table, and sized. The superior capsular flap was excised. Retractors were placed circumferentially exposing the acetabulum. We then circumferentially debrided the acetabulum free of labrum and osteophytes. The pulvinar was removed to fully visualize the cotyloid fossa. We then sequentially reamed to achieve peripheral fit and excellent bleeding subchondral bone. The socket was thoroughly irrigated. The acetabular component was impacted into the appropriate position using fluoroscopy to guide version, inclination, and depth of insertion taking care to have a comparable image of the AP pelvis to the standing image taken in the office. An excellent press-fit was achieved and final position was confirmed using fluoroscopy. The press fit was augmented with bony cancellus dome screws. The liner was then impacted into the socket. Attention was then turned to the femur. The remnant dorsal lateral capsule was excised. The short external rotators were visible and protected. A bone hook was used to confirm appropriate translation of the trochanter away from the acetabulum. The leg was then extended and adducted and the bone hook was used to elevate the femur for broaching. A box osteotome and blunt tipped canal sound was then utilized to gain access to the femoral canal. We then sequentially broached the femur in appropriate anteversion until excellent torsional stability was achieved. The neck cut was brought flush to the trial broach with a calcar planar. A trial neck and head were then placed onto the broach and the hip was atraumatically reduced under direct visualization. External rotation to 90 was performed to assess stability. Fluoroscopy was brought in. An AP and lateral fluoroscopic image of the proximal femur was obtained to assess position and fill of the trial broach. An AP of the pelvis was then obtained and matched to the preoperative image taken. A bi-ischial bar was then placed and measurements were taken to assess changes in length and offset. The hip was then carefully dislocated, the proximal femur was exposed, and the trial implants were removed. The wound and proximal femur was thoroughly irrigated using sterile saline and pulsatile lavage. The final femoral implant was dispensed and gently tapped into place generating an excellent press-fit. The trunnion was cleansed and the final head was tapped into place to engage the Tsang taper. The acetabulum was irrigated and visualized to be free of debris. The hip was carefully reduced. Stability was checked clinically with external rotation to 90 and there was no evidence of instability. Final fluoroscopic images were taken. The wound was then thoroughly irrigated and soaked with a dilute Betadine rinse for 3 minutes. 3 L of sterile saline was irrigated through the wound using pulsatile lavage. Local anesthetic cocktail was injected into the soft tissues around the surgical field. A deep drain was placed. The wound was then closed in layers. A sterile dressing was placed over the surgical incision and drain site. The drapes were taken down and the patient was carefully transferred off of the Stout table. Following removal of the boots the leg lengths felt acceptable. The patient was then taken to recovery room having tolerated the procedure well. Taj Lopez PA-C was required as a skilled process assistant for patient positioning, surgical exposure, retraction, placement of implants, and closure of the surgical wound. PLAN: The patient can weight-bear as tolerated on the operative extremity. 2 doses of postoperative antibiotics. DVT prophylaxis with aspirin 81 mg twice a day based on preoperative risk stratification. Physical therapy for gait training. Discontinue drain postoperative day #1 if output is less than 100 mL per shift.
--- NOTE | 2022-07-08 15:49 | XR ---
Intraoperative/procedural fluoroscopic services were provided. Total fluoroscopy time is 45 seconds s econds with a total of 5 submitted images to PACS. Please see the operative/procedural note for furth er details.
[2022-07-08] MEDS ORDERED: HYDROmorphone 0.5 MG/0.5 ML SYRINGE IVP PRN ×2 (16:00)
[2022-07-08] MEDS ORDERED: ONDANSETRON 4 MG/2 ML VIAL IVP PRN (16:00)
[2022-07-08] MEDS ORDERED: HYDROcodone/APAP 5-325MG 1 EACH TAB PO PRN ×2 (16:00)
[2022-07-08] MEDS ORDERED: NALOXONE 0.4 MG/ML 1 ML VIAL IV PRN (16:00)
[2022-07-08] MEDS ORDERED: HYDROmorphone 1 MG/ML 1 ML SYRINGE IVP PRN (16:00)
[2022-07-08] MEDS ORDERED: hydrOXYzine pamoate 25 MG CAP PO PRN (16:00)
[2022-07-08] MEDS: HYDROmorphone 0.5 MG/0.5 ML SYRINGE IVP PRN ×3 (16:16→16:53)
--- NOTE | 2022-07-08 18:38 | P.CONS ---
History of Present Illness - Reason for Consult Consult date: 07/08/22 - History of Present Illness Patient is a 62-year-old male with PMH of dyslipidemia, GERD, hypertension, asthma, left hip osteoarthritis that presents the ED for elective surgery. He underwent left direct anterior total hip arthroplasty on 07/08/2022. [facility] physicians has been consulted for medical management of this patient. Patient was seen and examined after his procedure. Patient reports well-controlled pain in his left hip. He has no complaints. He has not been able to urinate yet. No bowel movement. He denies any headache, lower extremity edema, nausea or vomiting, fever or chills, cough, chest pain, s hortness of breath or palpitations. No changes in appetite or weight. He denies any dizziness, numbness/weakness/tingling of the extremities. Review of systems is performed and is negative except above. His vital signs are stable. He is currently on 2 L nasal cannula saturating 95%. General: non toxic, no distress, appears at stated age Derm: warm, dry Head: atraumatic, normocephalic, symmetric Eyes: EOMI, no lid lag, anicteric sclera Mouth: no lip lesion, mucus membranes moist Cardiovascular: S1S2 reg, no murmur, positive DP pulse bilateral Lungs: CTA bilateral, no rhonchi, no rales , no accessory muscle use Abdominal: soft, nontender to palpation Ext: no gross muscle atrophy, no edema, no contractures Neuro: no focal neuro deficits Psych: Alert, oriented, appropriate affect #Dyslipidemia #GERD #Hypertension #Asthma Patient be restarted on simvastatin. Patient be restarted on Protonix. BP 118/72. Patient will be restarted on lisinopril and hydrochlorothiazide. His vital signs were monitored and medication adjusted if necessary. Albuterol neb as needed for shortness of breath and wheezing. Restart Advair. PT and OT has been consulted to work with this patient. Supplemental O2 to maintain O2 saturation greater than 92%. DVT prophylaxis: [Heparin, SCD] Discussed with: [Patient, and nursing] Anticipated discharge: [1-2 days] Anticipated discharge place: [Home] A total of [30] minutes was spent on the care of this complex patient more than 50% of the time was spent in counseling and care coordination. Patient names his decision maker if he can't make decisions for himself. Patient would like to be full code. Thank you for this consultation. Please call sound physicians with additional questions or concerns. Past Medical History Past Medical History: Asthma, GERD/Reflux, Hyperlipidemia, Hypertension, Sleep Apnea/CPAP/BIPAP Additional Past Medical History / Comment(s): uses CPAP, History of Any Multi-Drug Resistant Organisms: None Reported Past Surgical History: Hernia Repair Additional Past Surgical History / Comment(s): vasectomy, tiera facial spasm repaired in 1999 Past Anesthesia/Blood Transfusion Reactions: No Reported Reaction Smoking Status: Former smoker - Past Family History Mother Family Medical History: Hypertension Additional Family Medical History / Comment(s): Mom is still alive Father Family Medical History: Myocardial Infarction ([place]) Additional Family Medical History / Comment(s): "Had 7 stents in heart" Brother(s) Family Medical History: Cancer Medications and Allergies Home Medications Medication Instructions Recorded Confirmed Type Pantoprazole [Protonix] 40 mg PO BID 07/30/18 07/08/22 History Simvastatin [Zocor] 20 mg PO 1900 07/30/18 07/08/22 History Albuterol Inhaler [Ventolin Hfa 2 puff INHALATION RT-Q6H PRN 07/31/18 07/08/22 History Inhaler] Fluticasone Nasal [place] [Flonase 1 spray EA NOSTRIL BID 07/31/18 07/08/22 History Nasal [place]] Fluticasone Propion/Salmeterol 1 puff INHALATION RT-BID 07/31/18 07/08/22 History [Advair 500-50 Diskus] Lisinopril-Hctz 20-25 mg 1 tab PO 0 07/31/18 07/08/22 History [Zestoretic 20-25] Meloxicam 7.5 mg PO BID 07/06/22 07/08/22 History Allergies Allergy/AdvReac Type Severity Reaction Status Date / Time No Known Allergies Allergy Verified 07/08/22 11:54 Physical Exam Vitals: Vital Signs Temp Pulse Resp BP Pulse Ox 07/08/22 17:26 82 16 118/72 95 07/08/22 17:11 70 16 113/67 90 L 07/08/22 16:56 62 16 104/63 98 07/08/22 16:31 77 16 105/73 98 07/08/22 16:14 71 16 110/69 97 07/08/22 15:58 97 F L 88 16 115/59 99 07/08/22 12:35 80 18 118/77 98 07/08/22 11:53 97.4 F L 77 18 133/73 97 Intake and Output 07/08/22 07/08/22 07/08/22 06:59 14:59 22:59 Intake Total 1050 600 Output Total 300 Balance 1050 300 Intake: IV 1050 600 Output: Estimated Blood Loss 300 Other: Weight 106.5 kg
[2022-07-08] MEDS ORDERED: LISINOPRIL-HCTZ 20-25 MG 1 EACH TAB PO SCH (19:00)
[2022-07-08] MEDS ORDERED: ATORVASTATIN 10 MG TAB PO SCH (19:00)
[2022-07-08] MEDS: ASPIRIN 81 MG PO SCH (20:32)
[2022-07-08] MEDS: PANTOPRAZOLE 40 MG TABLET PO SCH (20:32)
[2022-07-08] MEDS ORDERED: HEPARIN SODIUM,PORCINE/PF 5,000 UNIT/0.5 ML SYRINGE SQ SCH (21:00)
[2022-07-08] MEDS ORDERED: SENNOSIDES-DOCUSATE SODIUM 1 EACH TAB PO SCH (21:00)
[2022-07-08] MEDS: SYMBICORT 160-4.5 MCG INHALER INHALATION SCH (21:18)
[2022-07-08] MEDS: LACTATED RINGERS 1,000 ML IV SCH (22:56)
[2022-07-09] MEDS: SYMBICORT 160-4.5 MCG INHALER INHALATION SCH (07:33)
[2022-07-09 08:15] VITALS: BP 121/81; PULSE 76; RESP 18; TEMP 98.5
--- NOTE | 2022-07-09 08:42 | P.DS ---
Providers Expected date of discharge: 07/09/22 Attending physician: Darwin Baron Consults: 07/08/22 16:00 Consult Physician Routine Consulting Provider: Kory Mead Consult Reason/Comments: medical management Do you want consulting provider notified?: Yes [facility] Course: This is a 62-year-old male who has been followed in our office by Dr. Baron for continued complaints of left hip pain due to left hip osteoarthritis. Treatment options were discussed, and patient elected to undergo a direct anterior left total hip arthroplasty. Patient was seen pre-operatively by Dr. Wen and cleared for surgery. Patient underwent a direct anterior left total hip arthroplasty on 07/08/22. The procedure was performed without complication or sequelae. The patient is doing fairly well postoperatively. Vital signs and labs are stable on postoperative day #1. Patient was examined bedside this morning with Dr. Baron. Patient states he is overall doing very well and the pain in his left hip is well-controlled. He has been ambulating with a walker with minimal assistance. Patient is tolerating his breakfast well. Patient is comfortable being discharged home today. Patient denies chest pain, shortness of breath, nausea, vomiting, fevers, chills. On examination, the patient is sitting up in the bedside chair in no apparent distress. He is alert and orientated 3. On inspection of the left hip, there is a clean, dry, intact Opsite dressing in place. There is no bleeding or drainage the dressing. Patient has good strength and ROM of the left ankle and toes. Motor and sensory function is intact of the left lower extremity. Femoral nerve function intact. The dorsalis pedis pulse is easily palpable, the left lower extremity is warm and well perfused with brisk capillary refill. Calf is soft and non-tender to palpation. Patient is discharged home with home health in good condition, pending medical clearance. Patient will follow-up with Dr. Baron in the office in 2 weeks. Please see med rec for accurate list of discharge medication. Plan - Discharge Summary Discharge Rx Participant: Yes New Discharge Prescriptions: New Docusate [Colace] 100 mg PO BID #60 capsule HYDROcodone/APAP 5-325MG [[place] 5-325] 1 tab PO Q6HR PRN 7 Days #28 tab PRN Reason: Pain Aspirin 81 mg PO BID 30 Days #60 tab Omeprazole 40 mg PO DAILY 30 Days #30 cap Diclofenac Sodium [Voltaren] 75 mg PO BID 30 Days #60 tab No Action Simvastatin [Zocor] 20 mg PO 0 Pantoprazole [Protonix] 40 mg PO BID Fluticasone Propion/Salmeterol [Advair 500-50 Diskus] 1 puff INHALATION RT- BID Fluticasone Nasal [place] [Flonase Nasal [place]] 1 spray EA NOSTRIL BID Albuterol Inhaler [Ventolin Hfa Inhaler] 2 puff INHALATION RT-Q6H PRN PRN Reason: Shortness Of Breath Lisinopril-Hctz 20-25 mg [Zestoretic 20-25] 1 tab PO 1899 Meloxicam 7.5 mg PO BID Discharge Medication List Pantoprazole [Protonix] 40 mg PO BID 07/30/18 [History] Simvastatin [Zocor] 20 mg PO 1900 07/30/18 [History] Albuterol Inhaler [Ventolin Hfa Inhaler] 2 puff INHALATION RT-Q6H PRN 07/31/18 [History] Fluticasone Nasal [place] [Flonase Nasal [place]] 1 spray EA NOSTRIL BID 07/31/18 [History] Fluticasone Propion/Salmeterol [Advair 500-50 Diskus] 1 puff INHALATION RT-BID 07/31/18 [History] Lisinopril-Hctz 20-25 mg [Zestoretic 20-25] 1 tab PO 1900 07/31/18 [History] Meloxicam 7.5 mg PO BID 07/06/22 [History] Aspirin 81 mg PO BID 30 Days #60 tab 07/09/22 [Rx] Diclofenac Sodium [Voltaren] 75 mg PO BID 30 Days #60 tab 07/09/22 [Rx] Docusate [Colace] 100 mg PO BID #60 capsule 07/09/22 [Rx] HYDROcodone/APAP 5-325MG [[place] 5-325] 1 tab PO Q6HR PRN 7 Days #28 tab 07/09/22 [Rx] Omeprazole 40 mg PO DAILY 30 Days #30 cap 07/09/22 [Rx] Follow up Appointment(s)/Referral(s): Darwin Baron MD [Medical Doctor] - 2 Weeks
[2022-07-09] MEDS: ASPIRIN 81 MG PO SCH (09:05)
[2022-07-09] MEDS: PANTOPRAZOLE 40 MG TABLET PO SCH (09:05)
[2022-07-09] MEDS: LACTATED RINGERS 1,000 ML IV SCH (09:06)
[2022-07-09 09:11] LABS: Basophils # (A) 0.01 X 10*3/uL (0.00-0.10); Basophils % (A) 0.1 %; Eosinophils # (A) 0 X 10*3/uL (0.04-0.35); Eosinophils % (A) 0 %; HCT 37.7 % (39.6-50.0); HGB 12.9 g/dL (13.0-17.0); Immature Grans, Automated 0.4 %; Lymphocytes # (A) 1.43 X 10*3/uL (0.90-5.00); Lymphocytes % (A) 12.1 %; MCH 31.9 pg (27.0-32.0); MCHC 34.2 g/dL (32.0-37.0); MCV 93.3 fL (80.0-97.0); Mean Platelet Volume 10.7 fL (9.5-12.2); Monocytes # (A) 0.91 X 10*3/uL (0.20-1.00); Monocytes % (A) 7.7 %; NRBC Per 100 WBC 0 /100 WBCS (0.0-0.0); Neutrophils # (A) 9.38 X 10*3/uL (1.80-7.70); Neutrophils % (A) 79.7 %; Platelet Count 208 X 10*3/uL (140-440); RBC 4.04 X 10*6/uL (4.40-5.60); RDW 13.9 % (11.5-14.5); WBC 11.78 X 10*3/uL (4.50-10.00)
--- NOTE | 2022-07-09 11:34 | P.PN ---
Subjective Progress Note Date: 07/09/22 Patient was seen and examined. No acute events overnight. Patient reports no complaints. General: non toxic, no distress, appears at stated age Derm: warm, dry Head: atraumatic, normocephalic, symmetric Eyes: EOMI, no lid lag, anicteric sclera Mouth: no lip lesion, mucus membranes moist Cardiovascular: S1S2 reg, no murmur, positive DP pulse bilateral Lungs: CTA bilateral, no rhonchi, no rales , no accessory muscle use Abdominal: soft, nontender to palpation Ext: no gross muscle atrophy, no edema, no contractures Neuro: no focal neuro deficits Psych: Alert, oriented, appropriate affect #Leukocytosis #Acute blood loss anemia #Dyslipidemia #GERD #Hypertension #Asthma Likely reactive. No signs of infection. Expected result of surgery. Patient be restarted on simvastatin. Patient be restarted on Protonix. BP 121/81. Patient will be restarted on lisinopril and hydrochlorothiazide. His vital signs were monitored and medication adjusted if necessary. Albuterol neb as needed for shortness of breath and wheezing. Restart Advair. PT and OT has been consulted to work with this patient. Patient is medically cleared for discharge. Thank you for this consultation. Please call [facility] physicians with additional questions or concerns. Objective - Vital Signs Vital signs: Vital Signs Temp 98.5 F 07/09/22 08:00 Pulse 76 07/09/22 08:00 Resp 18 07/09/22 08:00 BP 121/81 07/09/22 08:00 Pulse Ox 95 07/09/22 02:00 FiO2 Intake & Output 07/08/22 07/09/22 07/09/22 18:59 06:59 18:59 Intake Total 1650 530 Output Total 300 200 Balance 1350 330 Weight 106.5 kg Intake: IV 1650 Intake, IV Titration 50 Amount ceFAZolin 2 gm In Sodium 50 Chloride 0.9% 50 ml @ 100 mls/hr IVPB Q8H [facility] Rx#: [id number] Oral 480 Output: Urine 200 Estimated Blood Loss 300 Other: # Voids 1 - Labs CBC & Chem 7: 07/09/22 05:48 Labs: Abnormal Lab Results - Last 24 Hours (Table) 07/09/22 Range/Units 05:48 WBC 11.78 H (4.50-10.00) X 10*3/uL RBC 4.04 L (4.40-5.60) X 10*6/uL Hgb 12.9 L (13.0-17.0) g/dL Hct 37.7 L (39.6-50.0) % Immature Gran # 0.05 H (0.00-0.04) X 10*3/uL Neutrophils # 9.38 H (1.80-7.70) X 10*3/uL Eosinophils # 0 L (0.04-0.35) X 10*3/uL
== END 2022-07-09 12:39 | disposition home health service (06) ==
LOC: OR 10:44 → 4SSUR 15:50 → OR 07-09 12:39
PROVIDERS: ATTEND Orthopaedic Surgery
DX: M16.12 Unilateral primary osteoarthritis, left hip (principal); G89.18 Other acute postprocedural pain; I11.9 Hypertensive heart disease without heart failure; E78.5 Hyperlipidemia, unspecified; J98.4 Other disorders of lung; K21.9 Gastro-esophageal reflux disease without esophagitis; Z98.52 Vasectomy status; Z98.890 Other specified postprocedural states; Z83.3 Family history of diabetes mellitus; Z82.49 Family history of ischemic heart disease and other diseases of the circulatory system; Z79.51 Long term (current) use of inhaled steroids
CPT/HCPCS: 27130; 94640 ×2; 97161; 64999; 86900; 86901; 85025; 86850; 73502; C1776; J2250; J0330; J1100 ×2; J2710; J0690 ×2; J2405; J3010; J1170 ×2; J2795; J1885; J2370; J2704; J1644; J2001

== ENCOUNTER → 2025-03-07 | Outpatient (CLI) | payer OTHER ==
--- NOTE | 2025-03-07 13:26 | MR ---
EXAMINATION TYPE: MR brain wo/w con DATE OF EXAM: 03/07/2025 1:10 PM COMPARISON: None. CLINICAL INDICATION: Male, 64 years old with history of H90.5 SENSORINEURAL HEARING LOSS; PHH, Sensor ineural hearing loss TECHNIQUE: Multi planar, multi sequence imaging was performed through the brain including: T1, T2, In version recovery, susceptibility weighted imaging and gradient echo imaging and Diffusion weighted im aging. The patient was then given intravenous contrast and multi planar, T1 fat-saturation images wer e obtained. IV Contrast: 10 mL Gadobutrol FINDINGS: There are vessels that closely approximates the 7th and 8th cranial nerve near the amy ser ies 701 image 64. There is also some susceptibility artifact in this region. Correlate for prior surg ical intervention reported in patient's history. The haro-white junctions, ventricular system, basal cisterns appear unremarkable. Diffusion-weighted imaging shows no evidence of restricted diffusion to suggest acute/subacute infarct. Intracranial ar terial flow voids are maintained. Midline structures show no abnormality. Scattered foci of high T2 s ignal intensity are seen within the periventricular white matter. The susceptibility weighted images do not reveal any evidence for micro-hemorrhage. After administration of gadolinium, no abnormal enha ncement is seen. The bone marrow signal is within normal limits. Paranasal sinuses and mastoid air cells: Mild scattered paranasal sinus disease. Visualized orbits: Orbital contents are intact. IMPRESSION: 1. Noninternal auditory Canal technique limits evaluation of the IACs. Vessels closely approximate th e left 7th and 8th cranial nerves near the amy. Consider IAC technique and clinical correlation . [place]aleana sceptibility blooming artifact in this region suggest prior surgical change or hemosiderin deposition correlate with patient history. 2. No evidence of intracranial mass, acute/subacute infarct, or abno rmal enhancement. 3. Nonspecific white matter changes, likely related to small vessel ischemic disease. [facility], , 03/07/2025 1:24 PM
== END | disposition home or self-care (01) ==
LOC: RADMRIMAIN 12:06
PROVIDERS: ATTEND Emergency Medicine Emergency Medical Services
DX: H90.5 Unspecified sensorineural hearing loss (principal); R90.82 White matter disease, unspecified
CPT/HCPCS: 70553; A9585